=== PATIENT | female | born 2000 | race African-American/Black ===

== ENCOUNTER 2023-04-26 04:21 | Observation (INO) | payer MEDICAID ==
[~2023-04-26] VITALS: Ht 154.9 cm; Wt 79.4 kg
[2023-04-26] MEDS ORDERED: PREN1TAB23 PO (04:59)
[2023-04-26] MEDS ORDERED: ASPI-1497 PO (04:59)
[2023-04-26] MEDS ORDERED: VITAMIN B 6 (04:59)
[2023-04-26] MEDS ORDERED: LACTATED RINGERS 1,000 ML IV SCH (05:00)
== END 2023-04-26 06:49 | disposition home or self-care (01) ==
LOC: 8 EST LDRP 04:21
PROVIDERS: ADMIT Obstetrics & Gynecology; ATTEND Obstetrics & Gynecology
DX: O62.9 Abnormality of forces of labor, unspecified (principal); O46.93 Antepartum hemorrhage, unspecified, third trimester; O42.92 Full-term premature rupture of membranes, unspecified as to length of time between rupture and onset of labor; O99.891 Other specified diseases and conditions complicating pregnancy; M54.9 Dorsalgia, unspecified; Z3A.39 39 weeks gestation of pregnancy; Z98.891 History of uterine scar from previous surgery
CPT/HCPCS: 59025; 76818; 76805; 76817; G0378 ×2; 99281